=== PATIENT | female | born 1955 | race Caucasian/White ===

== ENCOUNTER 2016-11-06 09:49 | Emergency (ER) | payer SELFPAY ==
[~2016-11-06] VITALS: Ht 172.7 cm; Wt 66.0 kg
[2016-11-06 09:51] VITALS: BP 181/93; PULSE 103; RESP 18; TEMP 98.2; O2SAT 97
--- NOTE | 2016-11-06 10:01 | PD ---
HPI . right foot pain Chief Complaint: Injury Time Seen by Provider: 10:01 Travel History International Travel<30 days: No Contact w/Intl Traveler<30days: No Traveled to known affect area: No History of Present Illness HPI 61-year-old female with no significant past medical history other than white coat syndrome here with complaints of right foot pain that started on October 27. Patient tells me that it [birth year] her birthday and she thinks she may have possibly applied too much pressure on her foot and caused an injury. She has been trying to take care of it at home and it is not getting better. She tells me the pain is 10/10 and located in the end of the metatarsals. She is unable to ambulate normally and relies on her heels. She also has what she calls corns on the bottom of her feet. She denies any known trauma or injury. She has not fallen. She is using a cane for support. PFSH Past Medical History ?: Not Past Surgical History Hysterectomy: Yes Social History Tobacco Use: No Allergies-Medications (Allergen,Severity, Reaction): Coded Allergies: Sulfites & Bisulfites (Verified Allergy, Severe, 11/06/16) Uncoded Allergies: ALEVE (Allergy, Severe, ITCHY FEET, 04/13/03) CHEMICALS (Allergy, Mild, INC. HR, 08/20/04) Reported Meds & Prescriptions Reported Meds & Active Scripts Active Ibuprofen 800 Mg Tab 800 Mg PO TID Review of Systems General / Constitutional: No: Fever Eyes: No: Visual changes HENT: No: Headaches Cardiovascular: No: Chest Pain or Discomfort Respiratory: No: Shortness of Breath Gastrointestinal: No: Abdominal Pain Genitourinary: No: Dysuria Musculoskeletal: Positive: Pain (right foot ) Skin: No Rash Neurologic: No: Weakness Psychiatric: No: Depression Endocrine: No: Polydipsia Hematologic/Lymphatic: No: Easy Bruising Physical Exam Narrative GENERAL: AAO x 3, no acute distress, Well-nourished, well-developed patient. SKIN: Warm and dry. No visible rashes or bruising. Right dorsum of foot mild trace edema. No ecchymosis or erythema. Plantar warts on the foot exactly where pain is located but on the opposite side HEAD: Normocephalic and atraumatic. EYES: No scleral icterus. No injection or drainage. ENT: No nasal drainage noted. Airway patent. NECK: Supple, trachea midline. No JVD. CARDIOVASCULAR: Regular rate and rhythm without murmurs, gallops, or rubs. RESPIRATORY: Breath sounds equal bilaterally. No accessory muscle use. No rhonchi or rales. GASTROINTESTINAL: Visual inspection is normal EXTREMITIES: No cyanosis. Right foot dorsum with very minimal trace edema. There is point tenderness over all of the second through fifth metatarsals ends. Range of motion in the ankle and foot are normal. There is some limited range of motion of the toes. Pedal pulses are intact bilaterally. BACK: Nontender without obvious deformity. No CVA tenderness. PSYCH: AAO x 3, normal affect. Data Data Last Documented VS Vital Signs Date Time Temp Pulse Resp B/P Pulse Ox O2 Delivery O2 Flow Rate FiO2 11/06/16 09:51 98.2 103 18 181/93 97 Orders Ibuprofen (Motrin) (11/06/16 10:15) Foot, Complete ([id number]) (11/06/16 10:05) Shoe Post Op (11/06/16 ) MDM Medical Decision Making Medical Screen Exam Complete: Yes Emergency Medical Condition: Yes Medical Record Reviewed: Yes Differential Diagnosis Bone spur, fracture, sprain, referred pain from plantar wart Narrative Course 61-year-old female with no significant past medical history other than white coat syndrome here with complaints of right foot pain that started on October 27. Patient tells me that it was her birthday and she thinks she may have possibly applied too much pressure on her foot and caused an injury. She has been trying to take care of it at home and it is not getting better. She tells me the pain is 10/10 and located in the end of the metatarsals. She is unable to ambulate normally and relies on her heels. She also has what she calls corns on the bottom of her feet. She denies any known trauma or injury. She has not fallen. She is using a cane for support. Patient seen and examined. She does have some tenderness to the ends of the metatarsal. She has some very minimal edema. I will go ahead and check an x-ray to rule out any bony abnormality. Ibuprofen administered in the ED for pain relief. xray negative Post op shoe given, but patient declined. Discussed with patient that xray is negative. Explained that her pain may be referred from her plantar warts, especially with the inability to walk and apply pressure to that area. I recommend f/u with Podiatry. She says she will make an appt on Tuesday. Patient verbalized understanding of instructions, questions were answered, and thanked me for their care. I advised them if their condition worsens, please return to the nearest emergency room for further care. Diagnosis Primary Impression: Right foot pain Additional Impression: Plantar wart of right foot Referrals: Freight Flow Sales Leader Additional Instructions: Please return to emergency department if your symptoms return or worsen. Follow up with your primary care provider. Take medications as prescribed. Please see a electrical integrator as we discussed. Scripts Ibuprofen 800 Mg [id number] Mg PO TID #21 TAB Prov:Rosetta Nowak MD 11/06/16 Disposition: 01 DISCHARGE HOME Condition: Stable Denise Payne Nov 06, 2016 10:01
[2016-11-06] MEDS ORDERED: IBUPROFEN 800 MG TAB PO ONE (10:15)
--- NOTE | 2016-11-06 11:26 | RADRPT ---
EXAM DATE/TIME: 11/06/2016 10:43 [facility] COMPARISON: No previous studies available for comparison. INDICATIONS : Anterior right foot pain. Patient states her large dog fell on her foot. MEDICAL HISTORY : None. SURGICAL HISTORY : None. ENCOUNTER: Initial ACUITY: 2 weeks PAIN SCORE: 3/10 LOCATION: Right foot. FINDINGS: Three view examination of the right foot demonstrates no soft tissue swelling, dislocation, or fractu re. The tarsal bones appear intact. The interphalangeal and metatarsophalangeal joints are intact. The calcaneus is intact. Bony mineralization is normal. CONCLUSION: Unremarkable examination of the right foot. Zachariah Anderson MD on November 06, 2016 at 11:24 Board Certified Radiologist. This report was verified electronically.
[2016-11-06] MEDS ORDERED: IBUP800T23 PO (11:29)
== END 2016-11-06 11:48 | disposition home or self-care (01) ==
LOC: NEPK 09:49
DX: M79.671 Pain in right foot (principal); B07.0 Plantar wart
CPT/HCPCS: 73630; 99283; L3260